=== PATIENT | female | born 1940 | race Caucasian/White ===

== ENCOUNTER 2018-07-31 10:19 | Observation (INO) ==
[2018-07-31] MEDS ORDERED: Mag Sulf 1 gm/100 ml Premix 100 ML IV.SIG ONE (10:51)
[2018-07-31] MEDS ORDERED: MethylPREDNISolone Sod Succinate Inj 125 MG/2 ML Vial IV.PUSH ONE (10:51)
--- NOTE | 2018-07-31 11:04 | ED ---
HPI General Chief Complaint: Shortness of Breath/Dyspnea Stated Complaint: Sob/Cold Symptoms/2-eliane/Abd Pain x 10 days Source: patient Mode of arrival: ambulatory Limitations: no limitations History of Present Illness Patient comes in stating that she is having pain days complaint of cough, wheezing, cough has been nonproductive, patient denies any fever, patient also denies any PCP is Dr. Deejay Lee MD Complaint: shortness of breath Onset (ago): day(s) (10) Severity: moderate Consistency/Duration: constant Relieving factors: nothing Exacerbating factors: nothing Known history of: COPD Associated symptoms: denies other symptoms Related Data Home oxygen amount: none Home Medications Medication Instructions Recorded Confirmed eszopiclone [Lunesta] 3 mg PO HS 07/31/18 07/31/18 fluticasone-salmeterol [Advair 1 puff INHALATION Q12H 07/31/18 07/31/18 Diskus] levalbuterol tartrate [Xopenex HFA] 2 inh INHALATION Q6H 07/31/18 07/31/18 levothyroxine 75 mg PO DAILY 07/31/18 07/31/18 losartan 50 mg PO DAILY 07/31/18 07/31/18 tiotropium bromide [Spiriva 2 puff INHALATION DAILY 07/31/18 07/31/18 Respimat] Previous Rx's Medication Instructions Recorded benzonatate [Tessalon Perles] 200 mg PO Q8H PRN #30 cap 08/02/18 guaifenesin [Mucinex] 600 mg PO BID 10 Days #20 tab 08/02/18 levofloxacin 750 mg PO DAILY@1100 #5 tab 08/02/18 prednisone 1 pack PO PER PKG DIR #1 each 08/02/18 Allergies Allergy/AdvReac Type Severity Reaction Status Date / Time codeine Allergy Severe Edema Verified 07/31/18 10:29 Opioids - Morphine Analogues Allergy Severe Edema Verified 07/31/18 10:29 Penicillins Allergy Severe Hives Verified 07/31/18 10:29 Review of Systems ROS: all other systems reviewed are negative [facility] Medical History Medical History COPD (chronic obstructive pulmonary disease) (Acute) Shad disease (Acute) HTN (hypertension) (Acute) Hypothyroid (Acute) Insomnia (Acute) Social History Social History Substance History: No History of Abuse Second Hand Smoke Exposure: No Smoking Status: Former smoker Tobacco Type: Cigarettes How Often Do You Have a Drink Containing Alcohol: 2 to 3 times a week Recent Travel in [facility] within the Last 8 Weeks: No Recent Out of Country Travel within the Last 8 Weeks: No Immunization History Tetanus Immunization: <5 Years Hx Influenza Vaccine This Season: Yes Exam Narrative Exam Narrative: GENERAL: Well-nourished, well-developed patient in no apparent distress. SKIN: Warm and dry. HEAD: Atraumatic. Normocephalic. EYES: Pupils equal and round. No scleral icterus. No injection or drainage. ENT: No nasal bleeding or discharge. Mucous membranes pink and moist. NECK: Trachea midline. No JVD. CARDIOVASCULAR: Regular rate and rhythm. no rubs or gallops RESPIRATORY: No accessory muscle use. Repetitive coughing, wheezing bilaterally , decreased tidal volume bilaterally GASTROINTESTINAL: Abdomen soft, non-tender, nondistended. No rebound or guarding MUSCULOSKELETAL: Extremities without clubbing, cyanosis, or edema. No obvious deformities. NEUROLOGICAL: Awake and alert. No obvious cranial nerve deficits. Motor grossly within normal limits. Five out of 5 muscle strength in the arms and legs. Normal speech. PSYCHIATRIC: Appropriate mood and affect; insight and judgment normal. Course Initial Documented Vital Signs Temperature 97.9 F 07/31/18 10:23 Pulse Rate 110 H 07/31/18 10:23 Respiratory Rate 20 07/31/18 10:23 Blood Pressure 191/134 H 07/31/18 10:23 Pulse Oximetry 98 07/31/18 10:23 Last Documented Vital Signs Temperature 97.2 F L 08/02/18 11:10 Pulse Rate 80 08/02/18 11:10 Respiratory Rate 20 08/02/18 11:10 Blood Pressure 144/70 H 08/02/18 11:10 Pulse Oximetry 94 L 08/02/18 11:10 Medical Decision Making MDM Narrative Medical Screen Exam Complete: Yes Emergency Medical Condition: Yes Differential Diagnosis Differential Diagnosis: Pneumonia versus pericardial effusion versus pulmonary embolus versus COPD exacerbation Medical Records Medical records reviewed: Yes I reviewed the patient's medical records. Lab Data Lab results reviewed: Yes I reviewed the patient's lab results. Result diagrams: 07/31/18 11:13 07/31/18 11:13 Lab Results 07/31/18 07/31/18 07/31/18 Range/Units 11:13 11:13 11:13 CBC w Diff Auto diff final WBC 9.4 (4.0-11.0) th/mm3 RBC 4.73 (4.00-5.30) mil/mm3 Hgb 14.0 (11.6-15.3) gm/dL Hct 41.5 (35.0-46.0) % MCV 87.7 (80.0-100.0) fL MCH 29.6 (27.0-34.0) pg MCHC 33.8 (32.0-36.0) % RDW 12.9 (11.6-17.2) % Plt Count 196 (150-450) th/mm3 MPV 9.9 (7.0-11.0) fL Neut % (Auto) 62.5 (16.0-70.0) % Lymph % (Auto) 27.1 (9.0-44.0) % [place] % (Auto) 6.5 (0.0-8.0) % Eos % (Auto) 2.8 (0.0-4.0) % Baso % (Auto) 1.1 (0.0-2.0) % Neut # (Auto) 5.9 (1.8-7.7) th/mm3 Lymph # (Auto) 2.5 (1.0-4.8) th/mm3 [place] # (Auto) 0.6 (0.0-0.9) th/mm3 Eos # (Auto) 0.3 (0.0-0.4) th/mm3 Baso # (Auto) 0.1 (0.0-0.2) th/mm3 WBC Differential . Differential Comment . Sodium 145 (136-145) meq/L Potassium 4.5 (3.5-5.1) meq/L Chloride 109 H (98-107) meq/L Carbon Dioxide 27.7 (21.0-32.0) meq/L Anion Gap 8 (5-15) meq/L BUN 14 (7-18) mg/dL Creatinine 1.00 (0.50-1.00) mg/dL Estimated GFR 54 L (>89) mL/min Random Glucose 120 H (74-106) mg/dL Calcium 9.0 (8.5-10.1) mg/dL Total Bilirubin 0.3 (0.2-1.0) mg/dL AST 14 L (15-37) U/L ALT 27 (10-53) U/L Alkaline Phosphatase 136 H (45-117) U/L Total Creatine Kinase 168 (26-192) U/L CK-MB (CK-2) 1.6 (0.5-3.6) ng/mL Troponin I Less than 0.02 L (0.02-0.05) ng/mL B-Natriuretic Peptide 35 (0-100) pg/mL Total Protein 7.2 (6.4-8.2) g/dL Albumin 3.2 L (3.4-5.0) g/dL Imaging Data Radiologist's impression: Chest X-Ray 07/31/18 10:51 CONCLUSION: 1. Mild left lower lobe airspace disease which may reflect atelectasis. Differential considerations include pneumonia in the appropriate clinical setting. Chest CTA 07/31/18 10:52 CONCLUSION: 1. No evidence of pulmonary embolism. 2. Cardiomegaly and coronary artery calcifications. 3. Tiny pericardial effusion. 4. Scattered emphysematous changes. 5. Hepatomegaly. Discharge Plan Discharge Disposition Patient Disposition: 30 Still Patient Discharge Condition Condition: Stable Discharge Order Discharge Orders: Discharge Order (Routine); Ordered 08/02/18 Ordered By: Rossi Herron Discharge Details Anticipated Discharge Date: 08/02/18 Diagnosis: Acute exacerbation of chronic obstructive airways disease, Community acquired pneumonia, Failure of outpatient treatment Physicians Team ED Provider: Hugo Rivas Primary Care Provider: Deejay Cobian Attending Provider: Rossi Herron Status ED Status: Left Department Discharge Information Discharge Date/Time: 07/31/18 13:14
--- NOTE | 2018-07-31 11:30 | XR ---
EXAM DATE: 07/31/2018 11:21 AM EDT AGE/SEX: 78 years / Female INDICATIONS: Short of breath for ten days. CLINICAL DATA: This is the patient's initial encounter. Patient reports that signs and symptoms have been present for 2 weeks and indicates a pain score of 0/10. MEDICAL/SURGICAL HISTORY: Chronic obstructive pulmonary disease. Fusion, cervical. COMPARISON: No prior exams available for comparison. FINDINGS: Mild airspace disease in the left lower lung zone. The cardiac silhouette is mildly enlarged. Partial ly imaged fixation hardware in the lower cervical spine. Osseous structures are intact. CONCLUSION: 1. Mild left lower lobe airspace disease which may reflect atelectasis. Differential considerations include pneumonia in the appropriate clinical setting. Electronically signed by: Naveen Abdul MD 07/31/2018 11:29 AM EDT
[2018-07-31 11:38] LABS: Chloride 109 meq/L (98-107); Potassium 4.5 meq/L (3.5-5.1); Sodium 145 meq/L (136-145)
[2018-07-31 11:42] LABS: Albumin 3.2 g/dL (3.4-5.0); Baso # (Auto) 0.1 th/mm3 (0.0-0.2); Baso % (Auto) 1.1 % (0.0-2.0); Eos # (Auto) 0.3 th/mm3 (0.0-0.4); Eos % (Auto) 2.8 % (0.0-4.0); Hematocrit 41.5 % (35.0-46.0); Lymph # (Auto) 2.5 th/mm3 (1.0-4.8); Lymph % (Auto) 27.1 % (9.0-44.0); Mean Corpuscular HGB Conc 33.8 % (32.0-36.0); Mean Corpuscular Hemoglobin 29.6 pg (27.0-34.0); Mean Corpuscular Volume 87.7 fL (80.0-100.0); Mean Platelet Volume 9.9 fL (7.0-11.0); Mono # (Auto) 0.6 th/mm3 (0.0-0.9); Mono % (Auto) 6.5 % (0.0-8.0); Neut # (Auto) 5.9 th/mm3 (1.8-7.7); Neut % (Auto) 62.5 % (16.0-70.0); Platelet Count 196 th/mm3 (150-450); Red Blood Count 4.73 mil/mm3 (4.00-5.30); Red Cell Distribution Width 12.9 % (11.6-17.2); White Blood Count 9.4 th/mm3 (4.0-11.0)
[2018-07-31 11:43] LABS: Anion Gap 8 meq/L (5-15); Blood Urea Nitrogen 14 mg/dL (7-18); Carbon Dioxide 27.7 meq/L (21.0-32.0); Glucose,Random 120 mg/dL (74-106)
[2018-07-31 11:45] LABS: Aspartate Aminotransferase 14 U/L (15-37)
[2018-07-31 11:46] LABS: Alanine Aminotransferase 27 U/L (10-53); Glomerular Filtration Rate 54 mL/min (>89)
[2018-07-31] MEDS ORDERED: Levofloxacin 500 mg Premix Inj 500 MG/100 ML PIGGYBACK IV.SIG ONE (11:46)
[2018-07-31 11:47] LABS: Total Protein 7.2 g/dL (6.4-8.2)
[2018-07-31 11:48] LABS: Alkaline Phosphatase 136 U/L (45-117); Creatine Kinase 168 U/L (26-192)
[2018-07-31 12:00] LABS: Creatine Kinase MB 1.6 ng/mL (0.5-3.6)
[2018-07-31] MEDS ORDERED: Bisacodyl 10 MG Supp RECTAL PRN (12:27)
[2018-07-31] MEDS ORDERED: Acetaminophen 325 MG Tablet PO PRN (12:27)
--- NOTE | 2018-07-31 12:47 | CT ---
EXAM DATE: 07/31/2018 12:38 PM EDT AGE/SEX: 78 years / Female INDICATIONS: Short of breath, cough and wheezing x 10 days. CLINICAL DATA: This is the patient's initial encounter. Patient reports that signs and symptoms have been present for 1 week and indicates a pain score of 2/10. MEDICAL/SURGICAL HISTORY: Chronic obstructive pulmonary disease. Hypertension. Cushings disease. Fusion, cervical. RADIATION DOSE: 14.58 CTDI (mGy) COMPARISON: No prior exams available for comparison. TECHNIQUE: Volumetric scanning was performed using a multi-row detector CT scanner during bolus infu alireza of 75 ml Omnipaque 350 (iohexol) nonionic water-soluble contrast as a single exam dose. The iwona a was post processed with a variety of visualization algorithms including full volume maximum intensi ty projection and sliding thin slab reformation. Using automated exposure control and adjustment of t he mA and/or kV according to patient size, radiation dose was kept as low as reasonably achievable to obtain optimal diagnostic quality images. DICOM format image data is available electronically for r eview and comparison. FINDINGS: Pulmonary Arteries: No filling defects are seen in the pulmonary arteries out to the subsegmental ve ssels. The left and right pulmonary arteries are normal in diameter. Lung: Scattered emphysematous changes are noted. No focal infiltrates are noted. No pulmonary nodule or mass is noted. Effusion: None. Mediastinum: No evidence of mediastinal or hilar adenopathy. The heart is enlarged. Coronary artery calcification are noted. Tiny pericardial effusion is noted. Other: The axilla is unremarkable. Hepatomegaly is noted. CONCLUSION: 1. No evidence of pulmonary embolism. 2. Cardiomegaly and coronary artery calcifications. 3. Tiny pericardial effusion. 4. Scattered emphysematous changes. 5. Hepatomegaly. Electronically signed by: Frantz Rizzo MD 07/31/2018 12:45 PM EDT
[2018-07-31] MEDS: Enoxaparin Inj 40 MG/0.4 ML Syringe SQ SCH (14:07)
--- NOTE | 2018-07-31 17:30 | P.HP ---
History of Present Illness Service: Hospitalist Primary Care Physician: Deejay Cobian MD Chief Complaint: Cough, shortness of breath, COPD History of Present Illness: Ms. Eisenberg is a pleasant 78-year-old female with a history of COPD who presents to the emergency department due to persistent cough and shortness of breath that started about 10 days ago. Her primary care provider prescribed her azithromycin which she has taken but reports no significant symptom relief. Patient takes Spiriva and Advair for COPD. Additionally she reports left-sided lower chest pain especially when she coughs. She denies any chest pain, shortness of breath, fever or chills. No changes in bowel or bladder habits. Upon admission CT PE study was done which did not show any pulmonary embolism. Past medical history: Hypertension, COPD, hypothyroidism Family history: No family history of Alzheimer's or Parkinson's. Social history: Patient denies using tobacco, alcohol, illicit drugs. - Diagnosis (1) Acute exacerbation of chronic obstructive airways disease Review of Systems All other systems reviewed negative except as stated in [facility] - History History Provided By: Patient - Medical History Medical History: Medical History (Last Reviewed 07/31/18 @ 11:05 by Hugo Rivas) COPD (chronic obstructive pulmonary disease) Shad disease HTN (hypertension) Hypothyroid Insomnia - Tobacco History Second Hand Smoke Exposure: No Tobacco Use In Past 30 Days: No (Pt quit 12 years ago) Smoking Status: Former smoker Tobacco Type: Cigarettes - Alcohol History How Often Do You Have a Drink Containing Alcohol: 2 to 3 times a week - Substance Use History Substance History: No History of Abuse - Travel History Recent Travel in the [place] Within the Last 8 Weeks: No Recent Travel Out of the Country Within the Last 8 Weeks: No - Immunization History Tetanus Immunization: <5 Years Hx Influenza Vaccine This Season: Yes Medications and Allergies Active Medications: Active Medications Acetaminophen (Tylenol) 650 mg PO Q4H PRN PRN Reason: Headache, fever, pain 1-5 Al Hydroxide/Mg Hydroxide (Milk Of Magnluis m Liq) 30 ml PO Q12H PRN PRN Reason: Mild Constipation Albuterol (Duoneb Neb (Prn)) 1 ampul NEB Q4HR NEB PRN PRN Reason: DYSPNEA Albuterol (Duoneb Neb (Sandra)) 1 ampul NEB Q6HR WHILE AWAKE NEB SANDRA Last Admin: 07/31/18 14:43 Dose: 1 ampul Bisacodyl (Dulcolax Supp) 10 mg RECTAL DAILY PRN PRN Reason: SEVERE CONSITIPATION Enoxaparin Sodium (Lovenox Inj) 40 mg SQ Q24H [facility] Last Admin: 07/31/18 14:07 Dose: 40 mg Lactulose (Lactulose Liq) 30 ml PO DAILY PRN PRN Reason: SEVERE CONSITIPATION Levofloxacin (Levaquin) 750 mg PO DAILY@1100 SANDRA Ondansetron HCl (Zofran Inj) 4 mg IV.PUSH Q6H PRN PRN Reason: NAUSEA OR VOMITING Prednisone (Deltasone) 20 mg PO BID [facility] Sennosides (Senokot) 17.2 mg PO Q12H PRN PRN Reason: Moderate Constipation Allergies Allergy/AdvReac Type Severity Reaction Status Date / Time codeine Allergy Severe Edema Verified 07/31/18 10:29 Opioids - Morphine Analogues Allergy Severe Edema Verified 07/31/18 10:29 Penicillins Allergy Severe Hives Verified 07/31/18 10:29 Home Medications Medication Instructions Recorded Confirmed Type eszopiclone [Lunesta] 3 mg PO HS 07/31/18 07/31/18 History fluticasone-salmeterol [Advair 1 puff INHALATION Q12H 07/31/18 07/31/18 History Diskus] levalbuterol tartrate [Xopenex HFA] 2 inh INHALATION Q6H 07/31/18 07/31/18 History levothyroxine 75 mg PO DAILY 07/31/18 07/31/18 History losartan 50 mg PO DAILY 07/31/18 07/31/18 History tiotropium bromide [Spiriva 2 puff INHALATION DAILY 07/31/18 07/31/18 History Respimat] Exam Vital signs: Vital Signs 07/31/18 10:23 07/31/18 10:35 07/31/18 10:43 Temperature 97.9 F Pulse Rate 110 H 92 H 87 Respiratory Rate 20 20 20 Blood Pressure 191/134 H 193/65 H 178/84 H Pulse Oximetry 98 97 98 07/31/18 11:00 07/31/18 11:29 07/31/18 12:52 Temperature Pulse Rate 87 79 Respiratory Rate 20 Blood Pressure Pulse Oximetry 97 99 07/31/18 13:05 07/31/18 14:45 Temperature Pulse Rate 87 96 H Respiratory Rate 20 20 Blood Pressure 189/85 H Pulse Oximetry 97 98 Intake & Output 07/30/18 07/31/18 07/31/18 18:59 06:59 18:59 Intake Total 200 / 200 Balance 200 / 200 Weight 87.2 kg Intake: IV 200 / 200 Levaquin 500 mg Premix Inj 500 100 / 100 mg In 100 ml @ 100 mls/hr IV. SIG ONCE ONE Rx#:[id number] Magnesium Sulfate 1 gm/D5W 100 100 / 100 ml Premix 100 ML @ 100 mls/hr IV.SIG ONCE ONE Rx#:[id number] Other: Date of Last Bowel Movement 07/30/18 Weight On Admission 87.2 kg Narrative: GENERAL: This is a well-nourished, well-developed patient, in no apparent distress. Currently on room air. SKIN: No rashes, ecchymoses or lesions. Warm and dry. HEAD: Atraumatic. Normocephalic. No temporal or scalp tenderness. EYES: Pupils equal round and reactive. No injection or drainage. ENT: Nose without bleeding, purulent drainage or septal hematoma. Airway patent. NECK: Trachea midline. No lymphadenopathy. Supple, nontender, no meningeal signs. CARDIOVASCULAR: Regular rate and rhythm without murmurs, gallops, or rubs. No JVD. RESPIRATORY: Poor air entry, diffuse wheezing. GASTROINTESTINAL: Abdomen soft, non-tender, nondistended. No guarding. MUSCULOSKELETAL: Extremities without clubbing, cyanosis, or edema. NEUROLOGICAL: Awake and alert. Cranial nerves II through XII intact. No focal neurological deficits. Normal speech. Results - Labs CBC & Chem 7: 07/31/18 11:13 07/31/18 11:13 Labs: Laboratory Results - last 24 hr 07/31/18 07/31/18 07/31/18 11:13 11:13 11:13 CBC w Diff Auto diff final WBC 9.4 RBC 4.73 Hgb 14.0 Hct 41.5 MCV 87.7 MCH 29.6 MCHC 33.8 RDW 12.9 Plt Count 196 MPV 9.9 Neut % (Auto) 62.5 Lymph % (Auto) 27.1 [place] % (Auto) 6.5 Eos % (Auto) 2.8 Baso % (Auto) 1.1 Neut # (Auto) 5.9 Lymph # (Auto) 2.5 [place] # (Auto) 0.6 Eos # (Auto) 0.3 Baso # (Auto) 0.1 WBC Differential . Differential Comment . Sodium 145 Potassium 4.5 Chloride 109 H Carbon Dioxide 27.7 Anion Gap 8 BUN 14 Creatinine 1.00 Estimated GFR 54 L Random Glucose 120 H Calcium 9.0 Total Bilirubin 0.3 AST 14 L ALT 27 Alkaline Phosphatase 136 H Total Creatine Kinase 168 CK-MB (CK-2) 1.6 Troponin I Less than 0.02 L B-Natriuretic Peptide 35 Total Protein 7.2 Albumin 3.2 L - Imaging Impressions Chest X-Ray 07/31/18 10:51 CONCLUSION: 1. Mild left lower lobe airspace disease which may reflect atelectasis. Differential considerations include pneumonia in the appropriate clinical setting. Chest CTA 07/31/18 10:52 CONCLUSION: 1. No evidence of pulmonary embolism. 2. Cardiomegaly and coronary artery calcifications. 3. Tiny pericardial effusion. 4. Scattered emphysematous changes. 5. Hepatomegaly. Caprini VTE Risk Assessment Caprini VTE Risk Assessment: Moderate/High Risk (score >= 2) Caprini Risk Assessment Model: Point Value = 1 Point Value = 2 Point Value = 3 Point Value = 5 Age 41-60 Minor surgery BMI > 25 kg/m2 Swollen legs Varicose veins or History of unexplained or recurrent spontaneous Oral contraceptives or hormone replacement Sepsis (< 1 month) Serious lung disease, including pneumonia (< 1 month) Abnormal pulmonary function Acute myocardial infarction Congestive heart failure (< 1 month) History of inflammatory bowel disease Medical patient at bed rest Age 61-74 Arthroscopic surgery Major open surgery (> 45 min) Laparoscopic surgery (> 45 min) Malignancy Confined to bed (> 72 hours) Immobilizing plaster cast Central venous access Age >= 75 History of VTE Family history of VTE Factor V Leiden Prothrombin [id number] Lupus anticoagulant Anticardiolipin antibodies Elevated serum homocysteine Heparin-induced thrombocytopenia Other congenital or acquired thrombophilia Stroke (< 1 month) Elective arthroplasty Hip, pelvis, or leg fracture Acute spinal cord injury (< 1 month) Prophylaxis Regimen: Total Risk Factor Score Risk Level Prophylaxis Regimen 0-1 Low Early ambulation 2 Moderate Order ONE of the following: *Sequential Compression Device (SCD) *Heparin 5000 units SQ BID 3-4 Higher Order ONE of the following medications: *Heparin 5000 units SQ TID *Enoxaparin/Lovenox 40 mg SQ daily (WT < 150 kg, CrCl > 30 mL/min) *Enoxaparin/Lovenox 30 mg SQ daily (WT < 150 kg, CrCl > 10-29 mL/min) *Enoxaparin/Lovenox 30 mg SQ BID (WT < 150 kg, CrCl > 30 mL/min) AND/OR *Sequential Compression Device (SCD) 5 or more Highest Order ONE of the following medications: *Heparin 5000 units SQ TID (Preferred with Epidurals) *Enoxaparin/Lovenox 40 mg SQ daily (WT < 150 kg, CrCl > 30 mL/min) *Enoxaparin/Lovenox 30 mg SQ daily (WT < 150 kg, CrCl > 10-29 mL/min) *Enoxaparin/Lovenox 30 mg SQ BID (WT < 150 kg, CrCl > 30 mL/min) AND *Sequential Compression Device (SCD) Assessment and Plan - Assessment (1) Acute exacerbation of chronic obstructive airways disease Code(s): J44.1 - Chronic obstructive pulmonary disease with (acute) exacerbation Status: Acute - Plan Ms. Eisenberg is a pleasant 78-year-old female with a history of COPD who presents to the emergency department due to persistent cough and shortness of breath despite taking azithromycin prescribed by her primary care physician for COPD. Acute COPD exacerbation -Patient is currently on room air. -Supplemental oxygen as needed to keep O2 saturation above 90%. -DuoNeb scheduled and as needed. -Levaquin 750 mg p.o. daily, prednisone 20 mg twice daily Hypertension Hypothyroidism Insomnia -Continue Lunesta, losartan 50 mg daily, levothyroxine Full code. SCDs.
[2018-07-31] MEDS: predniSONE 20 MG Tablet PO SCH (21:49)
[2018-08-01] MEDS: predniSONE 20 MG Tablet PO SCH ×2 (10:29→21:17)
[2018-08-01] MEDS ORDERED: levoFLOXacin 750 MG Tablet PO SCH (11:00)
--- NOTE | 2018-08-01 12:35 | P.PN ---
Subjective Interval history: Follow-up for COPD exacerbation. Patient is complaining of persistent cough. Denies any chest pain, fever or chills. She is on room air. She is ambulating well. Physical Exam Vital signs: Vital Signs 07/31/18 12:52 07/31/18 13:05 07/31/18 14:45 Temperature Pulse Rate 87 96 H Respiratory Rate 20 20 Blood Pressure 189/85 H Pulse Oximetry 99 97 98 07/31/18 18:36 07/31/18 19:15 07/31/18 19:40 Temperature Pulse Rate 106 H 101 H Respiratory Rate 18 Blood Pressure 162/72 H Pulse Oximetry 96 07/31/18 20:00 08/01/18 00:00 08/01/18 04:00 Temperature 96.1 F L 96 F L 97 F L Pulse Rate 110 H 98 H 92 H Respiratory Rate 20 20 20 Blood Pressure 158/73 H 145/82 H 119/64 Pulse Oximetry 97 95 96 08/01/18 05:54 08/01/18 08:00 08/01/18 10:03 Temperature 96.2 F L Pulse Rate 107 H 109 H Respiratory Rate 18 20 Blood Pressure 155/69 H Pulse Oximetry 95 96 08/01/18 10:04 Temperature Pulse Rate 104 H Respiratory Rate 20 Blood Pressure Pulse Oximetry Intake & Output 07/31/18 08/01/18 08/01/18 18:59 06:59 18:59 Intake Total 920 / 920 960 / 960 Output Total 400 / 400 Balance 520 / 520 960 / 960 Weight 87.2 kg 91.3 kg Intake: IV 200 / 200 Levaquin 500 mg Premix Inj 500 100 / 100 mg In 100 ml @ 100 mls/hr IV. SIG ONCE ONE Rx#:[id number] Magnesium Sulfate 1 gm/D5W 100 100 / 100 ml Premix 100 ML @ 100 mls/hr IV.SIG ONCE ONE Rx#:[id number] Oral 720 / 720 960 / 960 Output: Urine Amount (Catheter) 400 / 400 Indwelling Urethral Catheter 400 / 400 Other: # Voids 2 2 Date of Last Bowel Movement 07/30/18 07/30/18 Weight On Admission 87.2 kg Narrative: GENERAL: Alert, oriented 3, NAD. SKIN: Warm and dry. HEAD: Normocephalic. EYES: No scleral icterus. No injection or drainage. NECK: Supple, trachea midline. No JVD or lymphadenopathy. CARDIOVASCULAR: Regular rate and rhythm without murmurs, gallops, or rubs. RESPIRATORY: Poor air entry, diffuse wheezing noted. GASTROINTESTINAL: Abdomen soft, non-tender, nondistended. MUSCULOSKELETAL: No cyanosis, or edema. BACK: Nontender without obvious deformity. No CVA tenderness. - Urinary Catheter Management Indwelling Urethral Catheter Cath placed during this visit: no Results - Labs CBC & Chem 7: 07/31/18 11:13 07/31/18 11:13 Microbiology 07/31/18 11:07 Nasal Wash Influenza Types A,B Antigen - Final Negative for FLU A and B antigen Infection due to influenza A or B cannot be ruled out since the antigen present in the sample may be below the detection limit of the test. - Imaging Impressions Chest CTA 07/31/18 10:52 CONCLUSION: 1. No evidence of pulmonary embolism. 2. Cardiomegaly and coronary artery calcifications. 3. Tiny pericardial effusion. 4. Scattered emphysematous changes. 5. Hepatomegaly. Assessment and Plan - Assessment (1) Acute exacerbation of chronic obstructive airways disease Code(s): J44.1 - Chronic obstructive pulmonary disease with (acute) exacerbation Status: Acute - Plan Ms. Eisenberg is a pleasant 78-year-old female with a history of COPD who presents to the emergency department due to persistent cough and shortness of breath despite taking azithromycin prescribed by her primary care physician for COPD. Acute COPD exacerbation -Patient is currently on room air. -Supplemental oxygen as needed to keep O2 saturation above 90%. -DuoNeb scheduled and as needed. -Levaquin 750 mg p.o. daily, prednisone 20 mg twice daily Hypertension Hypothyroidism Insomnia -Continue Lunesta, losartan 50 mg daily, levothyroxine 75mcg Qday. Full code. SCDs. Probable discharge tomorrow.
[2018-08-01] MEDS: Enoxaparin Inj 40 MG/0.4 ML Syringe SQ SCH (14:21)
[2018-08-01] MEDS: guaiFENesin 600 MG ER Tablet PO SCH (21:17)
[2018-08-01] MEDS: Benzonatate 100 MG Capsule PO PRN (21:17)
[2018-08-02] MEDS ORDERED: Levothyroxine 75 MCG Tablet PO SCH (06:00)
[2018-08-02 07:25] VITALS: RESP 20
[2018-08-02] MEDS: Benzonatate 100 MG Capsule PO PRN (09:42)
[2018-08-02] MEDS: predniSONE 20 MG Tablet PO SCH (09:43)
[2018-08-02] MEDS: guaiFENesin 600 MG ER Tablet PO SCH (09:43)
--- NOTE | 2018-08-02 10:37 | P.DS ---
Date of admission: 07/31/18 12:29 Primary care physician: Deejay Cobian MD Brief History from admission: Ms. Eisenberg is a pleasant 78-year-old female with a history of COPD who presents to the emergency department due to persistent cough and shortness of breath that started about 10 days ago. Her primary care provider prescribed her azithromycin which she has taken but reports no significant symptom relief. Patient takes Spiriva and Advair for COPD. Additionally she reports left-sided lower chest pain especially when she coughs. She denies any chest pain, shortness of breath, fever or chills. No changes in bowel or bladder habits. Upon admission CT PE study was done which did not show any pulmonary embolism. Past medical history: Hypertension, COPD, hypothyroidism Family history: No family history of Alzheimer's or Parkinson's. Social history: Patient denies using tobacco, alcohol, illicit drugs. DS: Diagnosis - Discharge Diagnosis (1) Acute exacerbation of chronic obstructive airways disease Status: Acute DS: Medications - Discharge Medications Prescriptions: benzonatate [Tessalon Perles] 200 mg PO Q8H PRN #30 cap PRN Reason: Cough guaifenesin [Mucinex] 600 mg PO BID 10 Days #20 tab levofloxacin 750 mg PO DAILY@1100 #5 tab prednisone 1 pack PO PER PKG DIR #1 each DS: Summary Hospital Course: Ms. Eisenberg is a pleasant 78-year-old female with a history of COPD who presents to the emergency department due to persistent cough and shortness of breath despite taking azithromycin prescribed by her primary care physician for COPD. Acute COPD exacerbation -Patient is currently on room air. -Supplemental oxygen as needed to keep O2 saturation above 90%. Patient has been on room air. -DuoNeb scheduled and as needed in the hospital. -Levaquin 750 mg p.o. daily, prednisone 20 mg twice daily - Upon discharge, patient is advised to continue Spiriva, Advair. Continue Levaquin for 5 days and Prednisone dose pack. - Gave referral to see Dr. King Beaulieu (Pulm). Hypertension Hypothyroidism Insomnia -Continue Lunesta, losartan 50 mg daily, levothyroxine 75mcg Qday. - Time Spent with Patient Total time spent providing and/or coordinating discharge services: Less than 30 minutes - Quality: VTE Deep Vein Thrombosis/Pulmonary Embolism Present on Admission: No Exam Vital signs: Vital Signs 08/01/18 12:00 08/01/18 14:48 08/01/18 16:00 Temperature 97.2 F L 96.8 F L Pulse Rate 102 H 102 H 101 H Respiratory Rate 19 20 19 Blood Pressure 131/58 L 134/63 Pulse Oximetry 95 94 L 08/01/18 19:48 08/01/18 20:00 08/02/18 00:00 Temperature 97.1 F L 96.8 F L Pulse Rate 100 H 98 H 94 H Respiratory Rate 18 18 18 Blood Pressure 140/62 Pulse Oximetry 97 95 96 08/02/18 07:24 08/02/18 07:44 Temperature 97 F L Pulse Rate 80 97 H Respiratory Rate 20 20 Blood Pressure 157/72 H Pulse Oximetry 94 L 97 Intake & Output 08/01/18 08/02/18 08/02/18 18:59 06:59 18:59 Intake Total 480 / 480 Balance 480 / 480 Weight 91.2 kg Intake: Oral 480 / 480 Other: # Voids 4 Date of Last Bowel Movement 08/01/18 08/01/18 # Bowel Movements 1 Narrative: GENERAL: Alert, Oriented x 3, NAD. SKIN: Warm and dry. HEAD: Normocephalic. EYES: No scleral icterus. No injection or drainage. NECK: Supple, trachea midline. No JVD or lymphadenopathy. CARDIOVASCULAR: Regular rate and rhythm without murmurs, gallops, or rubs. RESPIRATORY: Moderate air entry. No appreciable wheezing. GASTROINTESTINAL: Abdomen soft, non-tender, nondistended. MUSCULOSKELETAL: No cyanosis, or edema. BACK: Nontender without obvious deformity. No CVA tenderness. Results Procedures completed during hospitalization: None. - Impressions ITS Impressions Chest X-Ray 07/31/18 10:51 CONCLUSION: 1. Mild left lower lobe airspace disease which may reflect atelectasis. Differential considerations include pneumonia in the appropriate clinical setting. Chest CTA 07/31/18 10:52 CONCLUSION: 1. No evidence of pulmonary embolism. 2. Cardiomegaly and coronary artery calcifications. 3. Tiny pericardial effusion. 4. Scattered emphysematous changes. 5. Hepatomegaly. Discharge Plan - Discharge Disposition Patient Disposition: Discharge Home - Discharge Condition Condition: Stable - Discharge Order Discharge Orders: Discharge Order (Routine); Ordered 08/02/18 Ordered By: Rossi Herron - Discharge Details Anticipated Discharge Date: 08/02/18 - Physicians Team Primary Care Provider: Deejay Cobian Attending Provider: Rossi Herron
[2018-08-02 11:11] VITALS: BP 144/70; PULSE 80; TEMP 97.2; O2SAT 94
--- NOTE | 2018-08-02 15:30 | ECG ---
Date Performed: 08/02/2018 Time Performed: 10:46:24 PTAGE: 78 years EKG: Sinus rhythm NORMAL ECG NO PREVIOUS TRACING DOCTOR: Madi Gomes Interpretating Date/Time 08/02/2018 15:30:21
== END 2018-08-02 12:15 | disposition home or self-care (01) ==
LOC: PHED 10:19 → PHEDA 10:19 → PH3 13:31
PROVIDERS: ADMIT Hospitalist; ATTEND Hospitalist